=== PATIENT | male | born 1995 | race Caucasian/White ===

== ENCOUNTER → 2020-04-09 | Outpatient (CLI) | payer BC | LOC: LAB 10:57 | PROVIDERS: ATTEND Nurse Practitioner Family | DX: R19.7 Diarrhea, unspecified (principal); R63.0 Anorexia; R11.0 Nausea | CPT/HCPCS: 82274; 87015; 87045; 87046; 87324; 87328; 87329; 87449; 87899 ==

== ENCOUNTER 2020-06-26 22:15 | Emergency (ER) | payer SELFPAY ==
[~2020-06-26] VITALS: Ht 165.1 cm; Wt 81.6 kg
--- NOTE | 2020-06-26 22:43 | ED Head Injury ---
General Chief Complaint: Laceration Stated Complaint: LAC TO HEAD Nursing Triage Note: PT AMBULATE TO ROOM 06 WITH C/O LAC ABOVE RIGHT EYE. PT STATES THAT THE LAST THING HE REMEMBERS WAS STANDING IN BATHROOM AT HOME. Source: patient Exam Limitations: no limitations (ROGER COMBS APRN) History of Present Illness Date Seen by Provider: Jun 26, 2020 Time Seen by Provider: 22:39 Initial Comments To ER by private vehicle with reports of a laceration to the right side of the forehead. This occurred just prior to arrival. He was in the bathroom when he awakened to one of his friends waking him up. He was covered in blood. He had been feeling fine before this. Has a headache currently but no other complaints. No fevers or chills. Alert and oriented. He has a history of Hodgkin's lymphoma treated with status post chemotherapy and radiation at the age of 16. Occurred: just prior to arrival Severity: moderate Location: frontal Method of Injury: unknown Loss of Consciousness: unsure Associated Systoms: Denies Symptoms (ROGER COMBS APRN) Allergies and Home Medications Allergies Coded Allergies: No Known Drug Allergies (Unverified , 06/26/20) Patient Home Medication List Home Medication List Reviewed: Yes (ROGER COMBS APRN) Review of Systems Review of Systems Constitutional: see HPI Eyes: No Symptoms Reported Ears, Nose, Mouth, Throat: no symptoms reported Respiratory: no symptoms reported Cardiovascular: no symptoms reported Genitourinary: no symptoms reported Musculoskeletal: no symptoms reported Skin: see HPI (ROGER COMBS APRN) Past Nqcpzox-Guijpg-Byjvpf Hx Patient Social History Alcohol Use: Denies Use Recreational Drug Use: Yes Drug of Choice: POT Smoking Status: Current Everyday Smoker Type Used: Cigarettes 2nd Hand Smoke Exposure: Yes Recent Foreign Travel: No Contact w/Someone Who Travel: No Recent Infectious Disease Expo: No Recent Hopitalizations: No Physical Abuse: No Sexual Abuse: No Mistreated: No Fear: No (ROGER COMBS APRN) Seasonal Allergies Seasonal Allergies: No (ROGER COMBS APRN) Past Medical History Surgeries: Yes (GROWTH ON EAR, PORT INSERTION/REMOVAL) Adenoidectomy, Tonsillectomy Respiratory: Yes Asthma Cardiac: No Neurological: No Genitourinary: No Gastrointestinal: Yes Hemorrhoids Musculoskeletal: No Endocrine: No HEENT: No Cancer: Yes (HODGKINS LYMPHOMA AT 16YOA) Lymphoma What Type of Treatment Did You: Chemotherapy, Radiation Psychosocial: Yes ADD/ADHD, Anxiety, Depression Integumentary: No Blood Disorders: No (ROGER COMBS APRN) Physical Exam Vital Signs Vital Signs - First Documented 06/26/20 06/27/20 22:27 00:36 Temp 36.8 Pulse 73 Resp 22 B/P (MAP) 158/91 (113) Pulse Ox 98 O2 Delivery Room Air (CALIN ONEAL MD) Vital Signs Capillary Refill : Less Than 3 Seconds (ROGER COMBS APRN) Height, Weight, BMI Height: '" Weight: lbs. oz. kg; 29.00 BMI Method: General Appearance: WD/WN, no apparent distress HEENT: PERRL/EOMI, normal ENT inspection, TMs normal, other (2 cm laceration to the right side of the forehead down to the muscle. Minimal active bleeding. This was anesthetized with 3 mL of 1% lidocaine without epinephrine. Wound then scrubbed and irrigated with chlorhexidine/saline solution then closed with one continuous suture size 6-0 Ethilon.) Neck: non-tender, full range of motion Respiratory: normal breath sounds, no respiratory distress, no accessory muscle use Extremities: normal range of motion, non-tender Psychiatric: alert, oriented x 3 Crainal Nerves: normal hearing, normal speech, PERRL Skin: normal color, warm/dry (ROGER COMBS APRN) [place] Coma Score Best Eye Response: (4) Open Spontaneously Best Verbal Response: (5) Oriented Best Motor Response: (6) Obeys Commands [place] Total: 15 (ROGER COMBS APRN) Progress/Results/Core Measures Results/Orders Lab Results Laboratory Tests Test 06/26/20 22:58 06/26/20 23:13 Range/Units White Blood Count 7.7 4.3-11.0 10^3/uL Red Blood Count 4.04 L 4.35-5.85 10^6/uL Hemoglobin 13.6 13.3-17.7 G/DL Hematocrit 39 L 40-54 % Mean Corpuscular Volume 96 80-99 FL Mean Corpuscular Hemoglobin 34 25-34 PG Mean Corpuscular Hemoglobin Concent 35 32-36 G/DL Red Cell Distribution Width 11.6 10.0-14.5 % Platelet Count 212 130-400 10^3/uL Mean Platelet Volume 9.7 7.4-10.4 FL Neutrophils (%) (Auto) 51 42-75 % Lymphocytes (%) (Auto) 37 12-44 % Monocytes (%) (Auto) 8 0-12 % Eosinophils (%) (Auto) 3 0-10 % Basophils (%) (Auto) 1 0-10 % Neutrophils # (Auto) 3.9 1.8-7.8 X 10^3 Lymphocytes # (Auto) 2.9 1.0-4.0 X 10^3 Monocytes # (Auto) 0.7 0.0-1.0 X 10^3 Eosinophils # (Auto) 0.2 0.0-0.3 10^3/uL Basophils # (Auto) 0.0 0.0-0.1 10^3/uL Sodium Level 141 135-145 MMOL/L Potassium Level 3.4 L 3.6-5.0 MMOL/L Chloride Level 108 H 98-107 MMOL/L Carbon Dioxide Level 21 21-32 MMOL/L Anion Gap 12 5-14 MMOL/L Blood Urea Nitrogen 12 7-18 MG/DL Creatinine 0.99 0.60-1.30 MG/DL Estimat Glomerular Filtration Rate > 60 BUN/Creatinine Ratio 12 Glucose Level 122 H 70-105 MG/DL Calcium Level 9.3 8.5-10.1 MG/DL Corrected Calcium 9.1 8.5-10.1 MG/DL Total Bilirubin 0.2 0.1-1.0 MG/DL Aspartate Amino Transf (AST/SGOT) 19 5-34 U/L Alanine Aminotransferase (ALT/SGPT) 24 0-55 U/L Alkaline Phosphatase 54 40-136 U/L Total Protein 6.7 6.4-8.2 GM/DL Albumin 4.3 3.2-4.5 GM/DL Serum Alcohol < 10 <10 MG/DL Urine Color YELLOW Urine Clarity CLEAR Urine pH 6.0 5-9 Urine Specific [place] 1.025 H 1.016-1.022 Urine Protein NEGATIVE NEGATIVE Urine Glucose (UA) NEGATIVE NEGATIVE Urine Ketones TRACE H NEGATIVE Urine Nitrite NEGATIVE NEGATIVE Urine Bilirubin NEGATIVE NEGATIVE Urine Urobilinogen 0.2 < = 1.0 MG/DL Urine Leukocyte Esterase NEGATIVE NEGATIVE Urine RBC (Auto) NEGATIVE NEGATIVE Urine RBC 0-2 /HPF Urine WBC 0-2 /HPF Urine Squamous Epithelial Cells 0-2 /HPF Urine Crystals PRESENT H /LPF Urine Calcium Oxalate Crystals RARE H /LPF Urine Bacteria MODERATE H /HPF Urine Casts NONE /LPF Urine Mucus MODERATE H /LPF Urine Culture Indicated YES Urine Opiates Screen NEGATIVE NEGATIVE Urine Oxycodone Screen NEGATIVE NEGATIVE Urine Methadone Screen NEGATIVE NEGATIVE Urine Propoxyphene Screen NEGATIVE NEGATIVE Urine Barbiturates Screen NEGATIVE NEGATIVE Ur Tricyclic Antidepressants Screen NEGATIVE NEGATIVE Urine Phencyclidine Screen NEGATIVE NEGATIVE Urine Amphetamines Screen NEGATIVE NEGATIVE Urine Methamphetamines Screen NEGATIVE NEGATIVE Urine Benzodiazepines Screen NEGATIVE NEGATIVE Urine Cocaine Screen NEGATIVE NEGATIVE Urine Cannabinoids Screen POSITIVE H NEGATIVE (CALIN ONEAL MD) My Orders Orders - CALIN ONEAL MD Lactated Ringers (Lr 1000 Ml Iv Solution (06/26/20 23:40) (CALIN ONEAL MD) Medications Given in ED Current Medications Medications Dose Ordered Sig/Karri Route Start Time Stop Time Status Last Admin Dose Admin Diphtheria/ Tetanus/Acell Pertussis 0.5 ml ONCE ONCE IM 06/26/20 22:45 06/26/20 22:46 DC 06/26/20 23:09 0.5 ML Lactated Ringer's 1,000 ml @ 0 mls/hr Q0M ONCE IV 06/26/20 23:40 06/26/20 23:42 DC 06/26/20 23:48 999 MLS/HR (CALIN ONEAL MD) Vital Signs/I&O 06/26/20 06/27/20 22:27 00:36 Temp 36.8 Pulse 73 84 Resp 22 17 B/P (MAP) 158/91 (113) 139/78 Pulse Ox 98 O2 Delivery Room Air Room Air (CALIN ONEAL MD) Blood Pressure Mean: 113 Progress Progress Note : Progress Note urinalysis suggested patient was a little dry. A liter of LR was administered. Workup was otherwise unremarkable. Patient states he was standing in the bathroom when the episode happened and seemed unprovoked. He has never had another incident like this. He was given precautions about engaging in any activity that would be dangerous if another syncopal episode should occur. A work note was given for tomorrow. Close follow-up was strongly encouraged to complete his workup. (CALIN ONEAL MD) Initial ECG Impression Date: Jun 26, 2020 Initial ECG Impression Time: 23:05 Initial ECG Rate: 54 Initial ECG Rhythm: Normal Sinus Initial ECG Intervals: Normal Comment Normal sinus rhythm with no abnormal intervals. ST elevation consistent with early repolarization juvenile pattern. No ST depression. No axis deviation. (CALIN ONEAL MD) Diagnostic Imaging Diagonstic Imaging: CT Plain Films/CT/US/NM/MRI: c-spine, head Comments CT head and cervical spine viewed by me and [employer] report reviewed. No acute injuries identified. (CALIN ONEAL MD) Departure Impression Primary Impression: Syncope and collapse Additional Impression: Forehead laceration Qualified Codes: S01.81XA - Laceration without foreign body of other part of head, initial encounter Disposition: 01 HOME, SELF-CARE Condition: Stable Departure-Patient Inst. Decision time for Depature: 00:17 (CALIN ONEAL MD) Referrals: [facility],LOCAL PHYSICIAN (PCP) Primary Care Physician Patient Instructions: Laceration Repair With Stitches (DC), Syncope (Fainting) (DC) Add. Discharge Instructions: Follow-up with a primary care provider soon as possible. You may need further evaluation to workup your syncope. This might include cardiac monitoring or other special studies. Please call tomorrow to make an appointment. Drink plenty of clear liquids to stay well-hydrated. You may use Tylenol and/or ibuprofen for pain. Avoid driving, operating machinery, swimming, heights, or other activities that might be dangerous should you have another episode of passing out. Monitor your wound for signs of infection such as increasing redness, increasing swelling, puslike drainage, or fever. Return to care promptly if you notice the symptoms. Cover your wound when in dirty or bernardino environments. Return in 5 days to have your stitches removed. You may allow soapy water to run over your wound in the shower but do not scrub directly over the stitches. Do not submerge until stitches are removed. Return to care if you have any further problems or concerns. All discharge instructions reviewed with patient and/or family. Voiced understanding. ROGER COMBS APRN Jun 26, 2020 22:42 CALIN ONEAL MD Jun 26, 2020 23:31
[2020-06-26] MEDS ORDERED: TETANUS,DIPTH,PERTUSS P/F (BOOSTRIX) 0.5 ML VIAL IM ONE (22:45)
[2020-06-26 23:06] LABS: BASOPHILS % (AUTO) 1 % (0-10); EOSINOPHILS # (AUTO) 0.2 10^3/uL (0.0-0.3); EOSINOPHILS % (AUTO) 3 % (0-10); HEMATOCRIT 39 % (40-54); HEMOGLOBIN 13.6 G/DL (13.3-17.7); LYMPHOCYTES # (AUTO) 2.9 X 10^3 (1.0-4.0); LYMPHOCYTES % (AUTO) 37 % (12-44); MEAN CORPUSCULAR HEMOGLOBIN 34 PG (25-34); MEAN CORPUSCULAR HGB CONC 35 G/DL (32-36); MEAN CORPUSCULAR VOLUME 96 FL (80-99); MEAN PLATELET VOLUME 9.7 FL (7.4-10.4); MONOCYTES # (AUTO) 0.7 X 10^3 (0.0-1.0); MONOCYTES % (AUTO) 8 % (0-12); NEUTROPHILS # (AUTO) 3.9 X 10^3 (1.8-7.8); NEUTROPHILS % (AUTO) 51 % (42-75); PLATELET COUNT 212 10^3/uL (130-400); RED CELL DISTRIBUTION WIDTH 11.6 % (10.0-14.5); WHITE BLOOD COUNT 7.7 10^3/uL (4.3-11.0)
[2020-06-26 23:15] LABS: ALBUMIN 4.3 GM/DL (3.2-4.5); CHLORIDE 108 MMOL/L (98-107); POTASSIUM 3.4 MMOL/L (3.6-5.0); SODIUM 141 MMOL/L (135-145)
[2020-06-26 23:16] LABS: CALCIUM 9.3 MG/DL (8.5-10.1)
[2020-06-26 23:17] LABS: GLUCOSE 122 MG/DL (70-105)
[2020-06-26 23:18] LABS: CARBON DIOXIDE 21 MMOL/L (21-32); TOTAL PROTEIN 6.7 GM/DL (6.4-8.2)
[2020-06-26 23:19] LABS: BILIRUBIN,TOTAL 0.2 MG/DL (0.1-1.0)
[2020-06-26 23:21] LABS: BILIRUBIN,URINE NEGATIVE (NEGATIVE); CLARITY,URINE CLEAR; COLOR,URINE YELLOW; GLUCOSE, URINE (UA) NEGATIVE (NEGATIVE); KETONES,URINE TRACE (NEGATIVE); LEUKOCYTE ESTERASE ,URINE NEGATIVE (NEGATIVE); NITRITE,URINE NEGATIVE (NEGATIVE); PROTEIN,URINE NEGATIVE (NEGATIVE)
[2020-06-26 23:21] LABS: ALKALINE PHOSPHATASE 54 U/L (40-136); CREATININE SERUM 0.99 MG/DL (0.60-1.30); GFR ESTIMATED > 60
[2020-06-26 23:22] LABS: BUN/CREATININE RATIO 12
[2020-06-26 23:24] LABS: ALANINE AMINOTRANSFERASE 24 U/L (0-55)
[2020-06-26 23:39] LABS: BACTERIA,URINE MODERATE /HPF; CALCIUM OXALATE CRYSTALS,UR RARE /LPF; RBC,URINE 0-2 /HPF; SQUAMOUS EPITHELIAL CELL,UR 0-2 /HPF; WBC,URINE 0-2 /HPF
[2020-06-26] MEDS ORDERED: LACTATED RINGERS 1,000 ML IV ONE (23:40)
[2020-06-26 23:41] LABS: AMPHETAMINE SCREEN, URINE NEGATIVE (NEGATIVE); BARBITURATE SCREEN URINE NEGATIVE (NEGATIVE); BENZODIAZEPINES SCREEN URINE NEGATIVE (NEGATIVE); CANNABINOID SCREEN, URINE POSITIVE (NEGATIVE); COCAINE SCREEN URINE NEGATIVE (NEGATIVE); METHADONE STAT NEGATIVE (NEGATIVE); METHAMPHETAMINE SCREEN URINE S NEGATIVE (NEGATIVE); OPIATE SCREEN URINE NEGATIVE (NEGATIVE); OXYCODONE STAT NEGATIVE (NEGATIVE); PROPOXYPHENE STAT NEGATIVE (NEGATIVE); TRICYCLIC ANTIDEPRESSANTS SCRE NEGATIVE (NEGATIVE)
[2020-06-27 00:36] VITALS: BP 139/78
--- NOTE | 2020-06-27 07:38 | Diagnostic Imaging Report ---
PROCEDURE: CT head and CT cervical spine without contrast. TECHNIQUE: Multiple contiguous axial images were obtained through the brain and cervical spine without the use of intravenous contrast. Sagittal and coronal reformations through the cervical spine were then performed. Auto Exposure Controls were utilized during the CT exam to meet ALARA standards for radiation dose reduction. INDICATION: Passed out in bathroom and hit head, laceration to the right eyebrow. EXAMINATION: CT brain, CT cervical spine 06/26/2020 FINDINGS: Brain: There is no hemorrhage or infarct. No mass, mass effect or midline shift. No hydrocephalus. Calvarium is intact. Paranasal sinuses and mastoid air cells demonstrate no evidence for acute abnormality. IMPRESSION: 1. No acute intracranial process. CT cervical spine: There is mild straightening of normal curvature with no fractures appreciated. No subluxations. Prevertebral soft tissues unremarkable. IMPRESSION: No acute osseous abnormality with straightening of the curvature, perhaps positional or due to muscle spasm. Pertinent findings agree with the preliminary report. Dictated by: Dictated on workstation # [id number]
== END 2020-06-27 00:35 | disposition home or self-care (01) ==
LOC: EDUNIT# 22:15 → ER 22:16
DX: S01.81XA Laceration without foreign body of other part of head, initial encounter (principal); R40.2410 Glasgow coma scale score 13-15, unspecified time; F17.210 Nicotine dependence, cigarettes, uncomplicated; Z23 Encounter for immunization; Z85.71 Personal history of Hodgkin lymphoma; X58.XXXA Exposure to other specified factors, initial encounter
CPT/HCPCS: 12002; 70450; 72125; 80053; 80306; 81000; 85025; 87088; 93005; 99284; G0480; 36415; 80320; 90715